=== PATIENT | female | born 1955 | race Caucasian/White ===

== ENCOUNTER 2016-12-11 05:39 | Day surgery (SDC) | payer OTHER ==
[~2016-12-11] VITALS: Ht 165.1 cm; Wt 104.5 kg
[~2016-12-11 05:39] MED LIST: BAYER CHEWABLE81 MG PO; GLUCOPHAGE500 MG PO; HCTZ25 MG PO; LEVAQUIN250 MG PO; LISINOPRIL10 MG OR; METOPROLOL TART50 MG PO; MULTIPLE VITAMI1 TA1 PO; PROPRANOLOL HCL20 MG PO; VICTOZA0.6 MG/0.1 SQ; ZOCOR20 MG PO; [UNRECOGNIZED DRUG - OTHER]
[2016-12-11 06:39] LABS: BASOPHILS 0.8 % (0.0-2.0); EOSINOPHILS 0.9 % (0-7); HEMATOCRIT 41.4 % (36.0-48.0); HEMOGLOBIN 14.4 g/dL (12-16); IMMATURE GRANULOCYTES 0.2 % (0-5); LYMPHOCYTES 20.1 % (15-50); MCH 30.8 pg (26.0-34.0); MCHC 34.8 g/dL (31.0-37.0); MCV 88.7 fL (80.0-100.0); MEAN PLATELET VOLUME 9.4 fL (7.4-10.4); MONOCYTES 5.6 % (2-11); NEUTROPHILS 72.4 % (40-80); RBC 4.67 10x6/uL (4.00-5.40); RDW 12.3 % (11.5-14.5); WBC 6.4 10x3/uL (4.8-10.8)
[2016-12-11 06:40] LABS: PLATELET COUNT 186 10x3/uL (130-400)
[2016-12-11 06:58] LABS: CALC OSMOLALITY 282 mosm/kg (275-300); CALCIUM 9.2 mg/dL (8.5-10.1); CHLORIDE - SERUM 104 mmol/L (98-107); CREATININE - SERUM 0.8 mg/dL (0.6-1.3); GLUCOSE 168 mg/dL (74-106); POTASSIUM - SERUM 3.7 mmol/L (3.5-5.1); SODIUM 140 mmol/L (136-145); UREA NITROGEN 12 mg/dL (7-18); eGFR NON AFRICAN AMERICAN 77 mL/min (90-120)
[2016-12-11] MEDS ORDERED: LISINOPRIL10 MG PO (07:04)
[2016-12-11 07:10] VITALS: BP 140/65; Ht 165.1 cm; Wt 104.5 kg
--- NOTE | 2016-12-11 13:39 | NUR ---
1010 DRESSED. AWAKE & ALERT. GIVEN DISCHARGE INSTRUCTIONS & MED REC. PT VOICED UNDERSTANDING. TO PRIVATE CAR PER WHEELCHAIR BY VOLUNTEER. HOME WITH MR. BERGERON. Osiris DUTTA R.N.
--- NOTE | 2016-12-15 13:07 | OP ---
PATIENT NAME: DAVY GAINES MEDICAL RECORD: [id number] :53 LOCATION:D.OPS ADMISSION DATE: SURGEON: MELITA PALAFOX MD DATE OF OPERATION: 12/11/2016 PREOPERATIVE DIAGNOSIS: Encounter for screening colonoscopy. POSTOPERATIVE DIAGNOSIS: Encounter for screening colonoscopy. Normal examination. OPERATION PERFORMED: Flexible video colonoscopy with ileoscopy. SURGEON: Melita Palafox MD ANESTHESIA: TIVA with propofol per QUALITY CONTROL. REFERRING PHYSICIAN: Soto Foote MD PREOPERATIVE NOTE: Ms. Gaines is a 61-year-old obese white female with hypertension and diabetes and no personal history of colon polyps and no family or personal history of colorectal cancer. She was referred for screening examination. She is 61 and has not had prior to colonoscopy She has completed a standard MiraLax bowel prep and was found during the procedure to have an excellent preparation. Under TIVA in lateral decubitus position, a digital rectal exam was performed. This revealed no evidence of a perianal inflammation or sepsis. No hemorrhoidal thrombosis, no bleeding, no masses. The scope was inserted and advanced to the cecum with minimal to moderate difficulty. The patient is having had a previous hysterectomy. The ileocecal valve was intubated and the terminal ileum, examined for perhaps 5 cm. No abnormalities were seen and the ileum or in the colon. Withdrawal time was approximately 10 minutes. No lesions were seen, not even diverticulosis. The patient was held in the GI lab for a brief period of time for observation and then returned to the outpatient department for recovery and discharged. We will plan to send her home today. She will continue her diabetic diet and continue her home medications. She will return to see me on a p.r.n. basis. There is no need for her to have a specific followup for today's procedure. She was given my cell number, so that she can reach me after hours and on weekends in the holidays if necessary and she is encouraged to call the office or myself for any significant problems or concerns. She will follow up with her primary care physician, Dr. Foote. TRANSINT:[id number] Voice Confirmation ID: [id number] DOCUMENT ID: [id number] OPERATIVE REPORT [id number] DAVY GAINES MELITA PALAFOX MD at 1307 CC: SOTO FOOTE MD [id number] DICTATION DATE: 12/11/1655 MERCHANDISING INTERN: 12/11/[address] [facility] 12/11/16 [facility] [address] [place] [address]
== END 2016-12-11 10:10 | disposition home or self-care (01) ==
LOC: D.OPS 05:39
PROVIDERS: Anesthesiology
DX: Z12.11 Encounter for screening for malignant neoplasm of colon (principal); I10 Essential (primary) hypertension; E11.9 Type 2 diabetes mellitus without complications